=== PATIENT | female | born 1990 | race Caucasian/White ===

== ENCOUNTER 2016-11-24 16:18 | Emergency (ER) | payer SELFPAY ==
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
[2016-11-24 17:31] VITALS: BP 106/70; PULSE 82; RESP 18; TEMP 97.3; O2SAT 92
== END 2016-11-24 17:30 | disposition home or self-care (01) ==
DX: S00.531A Contusion of lip, initial encounter (principal); F17.200 Nicotine dependence, unspecified, uncomplicated; Y08.89XA Assault by other specified means, initial encounter; Y93.89 Activity, other specified

== ENCOUNTER 2016-11-25 09:24 | Emergency (ER) | payer SELFPAY ==
[2016-11-25] MEDS ORDERED: NS 1,000 ML IV ONE (09:29)
[2016-11-25 09:49] LABS: % IMMATURE GRANULYOCYTES 0.3 % (0.0-1.1); ABSOLUTE IMMATURE GRANULOCYTES 0.02 10^3/uL (0.00-0.10); ADD DIFF? NO; ADD MORPH? NO; ADD SCAN? NO; ATYPICAL LYMPHOCYTE FLAG 0 (0-99); FRAGMENT RBC FLAG 0 (0-99); HEMOGLOBIN 14.6 g/dL (12.6-16.3); LEFT SHIFT FLG 0 (0-99); LIPEMIA HEMOLYSIS FLAG 90 (0-99); MEAN CELL HEMOGLOBIN 32.7 pg (27.9-34.1); MEAN CELL HEMOGLOBIN CONCENTR. 34.8 g/dL (32.4-36.7); MEAN PLATELET VOLUME 11.2 fL (8.7-11.7); PLATELET CLUMPS FLAG 10 (0-99); PLATELET COUNT 172 10^3/uL (150-400); RED BLOOD CELL COUNT 4.47 10^6/uL (4.18-5.33); RED CELL DISTRIBUTION WIDTH 12.2 % (11.5-15.2)
[2016-11-25 10:09] LABS: ANION GAP 10 mEq/L (8-16); CALCIUM 9.6 mg/dL (8.5-10.4); CARBON DIOXIDE 24 mEq/l (22-31); CHLORIDE 107 mEq/L (97-110); CREATININE 0.8 mg/dL (0.6-1.0); GLOMERULAR FILTRATION RATE > 60; GLUCOSE 144 mg/dL (70-100); POTASSIUM 4.2 mEq/L (3.5-5.2); SODIUM 141 mEq/L (134-144)
--- NOTE | 2016-11-25 10:21 | CPEKG ---
Heart Rate: 77 RR Interval: 779 P-R Interval: 132 QRSD Interval: 90 QT Interval: 412 QTC Interval: 467 P [place]: 72 QRS [place]: 79 T Wave [place]: 76 EKG Severity - NORMAL ECG - EKG Impression: SINUS RHYTHM Electronically Signed By: Weston Gallardo 25-Nov-2016 11:35:19
[2016-11-25 10:24] VITALS: RESP 16
--- NOTE | 2016-11-25 11:26 | EDPHY ---
H & P Stated Complaint: near syncope after marijuana use HPI/ROS: Chief complaint: Near-syncope History of present illness: This is a 26-year-old female brought to the emergency department by EMS for a near syncopal episode. Apparently patient had some marijuana earlier today, she then started to feel like she was going to pass out. 911 was contacted and she was brought here. On my evaluation she states she feels somewhat lightheaded otherwise she has no other complaints. She states she has had similar problems in the past of almost passing out or passing out. She has been told by doctors previously that it is due to low blood sugar. She denies other associated signs or symptoms: No headache, no chest pain, no shortness of breath, no abdominal pain, no nausea, vomiting or diarrhea, no abnormal bowel or bladder function. Review of systems: A 10 point review of systems was obtained and other than described above was negative - Personal History Current Tetanus Diphtheria and Acellular Pertussis (TDAP): Yes - Medical/Surgical History Hx Asthma: No Hx Chronic Respiratory Disease: No Hx Diabetes: No Hx Cardiac Disease: No Hx Renal Disease: No Hx Cirrhosis: No Hx Alcoholism: No Hx HIV/AIDS: No Hx Splenectomy or Spleen Trauma: No Other PMH: anxiety depression - Social History Smoking Status: Current every day smoker - Physical Exam Exam: General Appearance: Alert, nontoxic. Eyes: Pupils equal and round no pallor or injection. ENT, Mouth: Mucous membranes moist. Respiratory: There are no retractions, lungs are clear to auscultation. Cardiovascular: Regular rate and rhythm. Gastrointestinal: Abdomen is soft and non tender, no masses, bowel sounds normal. Neurological: Alert and oriented x4. Cranial nerves 2-12 grossly intact. Strength and sensation intact and symmetrical. No meningismus. Ambulating without difficulty. Skin: Warm and dry, no rashes. Musculoskeletal: Neck is supple non tender. Extremities are symmetrical, full range of motion. Psychiatric: Patient is oriented X 3, there is no agitation. Constitutional: Initial Vital Signs Temperature (C) 36.5 C 11/25/16 09:36 Heart Rate 67 11/25/16 09:36 Respiratory Rate 18 11/25/16 09:36 Blood Pressure 102/72 11/25/16 09:36 O2 Sat (%) 99 11/25/16 09:36 O2 Delivery Mode Room Air Allergies/Adverse Reactions: No Known Allergies Allergy (Verified 11/25/16 09:36) Home Medications: Medication Instructions Recorded Celexa 11/24/16 Medical Decision Making ED Course/Re-evaluation: Patient seen under the supervision of my secondary supervising physician Dr. Weston Gallardo. Patient presents to the emergency department for a near syncopal event. On presentation she is nontoxic. She is afebrile and vital signs are stable. Physical exam is benign including a nonfocal neurologic exam. Blood studies and EKG are unremarkable. She is IV hydrated. On re- evaluation she states she is feeling fine. Patient will be discharged home. Home care is discussed. She is asked to follow up with a primary care doctor for recheck. Return precautions are given. Patient voiced understanding and agreement with plan. Differential Diagnosis: Included but not limited to low volume status, with static symptoms, cardiac dysrhythmia, electrolyte disturbances, an associated complications, drug use - Data Points Laboratory Results: Laboratory Results 11/25/16 09:26 11/25/16 09:26 Medications Given: Discontinued Medications Sodium Chloride (Ns) 1,000 mls @ 0 mls/hr IV ONCE ONE PRN Reason: Wide Open Stop: 11/25/16 09:30 Last Admin: 11/25/16 10:07 Dose: 1,000 mls Departure - Departure Disposition: Home, Routine, Self-Care Clinical Impression: Syncope Qualifiers: Syncope type: unspecified Qualifier Code: (R55) Syncope and collapse Condition: Good Instructions: Syncope (ED) Additional Instructions: Follow-up with a primary care doctor for recheck If symptoms worsen or new symptoms develop return to the emergency department for recheck Referrals: NONE *PRIMARY CARE P,. [Primary Care Provider] - As per Instructions [facility] [Outside] - As per Instructions
--- NOTE | 2016-11-25 11:36 | CT ---
CT Cervical Spine Indication: TRAUMA, neck pain. Comparison: None. Technique: 1.25 mm thick axial collimated slices were obtained from the occiput through superior endp late of T2. The data was reconstructed in the sagittal and coronal plane. Both soft tissue and bone w indows were reviewed. Dose reduction techniques were utilized. Findings: The occiput through T2 is anatomically aligned. No acute fracture or soft tissue swelling. Disk heights are well preserved. The lung apices are clear. Impression: 1. No acute fracture or soft tissue swelling. 2. If the patient has persistent pain or neurologic deficits, consider cervical spine MRI. Findings discussed with Emergency Department, Osiel Adrian PA-C, on 11/25/2016 at 11:13 a.m.
[2016-11-25 11:48] VITALS: BP 123/74; PULSE 78; TEMP 98.2; O2SAT 96
== END 2016-11-25 12:00 | disposition home or self-care (01) ==
LOC: EDUNIT#
DX: R55 Syncope and collapse (principal); F17.200 Nicotine dependence, unspecified, uncomplicated